=== PATIENT | male | born 1935 | race Caucasian/White ===

== ENCOUNTER → 2018-02-26 | Outpatient (CLI) | payer OTHER ==
[~2018-02-26] VITALS: Ht 193 cm; Wt 98.8 kg
[~2018-02-26] MED LIST: AMLODIPINE BESY10 MG PO; DEMADEX20 MG PO; DHEA50 MG PO; LOSARTAN POTAS100 MG PO; MOBIC15 MG PO; POTASSIUM CITR10 ME1 PO; XARELTO20 MG PO
--- NOTE | ~2018-02-26 | OD ---
[facility] [place] [address] DELIVERY NOTE Name: GREGOR HART [facility] [id number] Admission: 02/26/18 Attend Phys: Caleb Coburn MD Discharge: Date of : 39 Report #: [id number] THIS REPORT FOR: //name// CC: Christofer Coburn DATE OF SERVICE: 02/26/2018 The patient is a pleasant 82-year-old gentleman seen today with pain in his left hip. His history is a bit atypical for classic radiculopathy. His pain is almost always at night. He cannot sleep in the horizontal position. It does not matter whether he is sleeping on his side or his back or his stomach. The pain wakes him frequently through the night, and he is sleeping poorly. Pain is intense as high as a 7-9 until he changes position. The pain does radiate some from the hip, a bit into the upper thigh, but not far. He gets relief when he stands up. MEDICATIONS: Torsemide, losartan, amlodipine, Xarelto, potassium, DHEA and meloxicam 15 mg daily. He has been given the go ahead to take the meloxicam while on Xarelto. We discussed the risk of blood thinners and anti-inflammatory drugs. He will carefully monitor for any bleeding issues related to meloxicam from the GI tract including the concerns of dyspepsia or any darkening of his stools. He has discontinued his Xarelto as recommended by Dr. Faith in anticipation of an epidural injection today for presumptive lumbar radiculopathy. ALLERGIES: None. PAST MEDICAL AND SURGICAL HISTORY: Significant for hypertension and atrial fibrillation. He has had bilateral knee replacements and herniorrhaphy. All have been performed in the last 15-20 years with no complications. SOCIAL HISTORY: He denies use of tobacco, but does drink alcohol 4-5 times a week in a social setting. 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 He has been retired for several years, enjoys fly fishing and time with his family. He has a place in [place] near [place] and is looking forward to a holiday with his family. REVIEW OF SYSTEMS: Positive for atrial fibrillation and some mild peripheral neuropathy in the lower extremities, he describes it as more fullness than pain. PHYSICAL EXAMINATION: He is a pleasant, serious 82-year-old gentleman. He appears fit. His blood pressure is 100/76, heart rate 60. He is 6 feet 4 inches tall, 217 pounds with a BMI of 26.5. He moves easily from a sitting to standing position. His gait is strong and stable without any signs of antalgic [facility] [address] [place] [address] DELIVERY NOTE Name: GREGOR HART Room #: REG [place] Morel#: [id number] Admission: 02/26/18 Attend Phys: Caleb Coburn MD Discharge: Date of : 39 Report #: [id number] feature. He is not a fall risk. He has limited pain with forward flexion, extension and rotation of the spine. Straight leg raising is negative. Sensation is intact other than some slight decrease to light touch over the feet due to neuropathy. Strength is excellent throughout both lower extremities. Deep tendon reflexes are diminished throughout. X-ray of the lumbar spine was reviewed. The MRI does show left convexity curvature of the lower lumbar spine. There are degenerative changes involving all lumbar disk and facets from L2-L3 through L5-S1. There is multilevel neural foraminal narrowing and mild central spinal stenosis. IMPRESSION: Lumbar spondylosis with foraminal and central spinal narrowing. Nocturnal pain that radiates into the hips and leg with consideration for lumbar epidural mechanism. RECOMMENDATION: Trial of epidural steroid injection under fluoroscopic guidance. DESCRIPTION OF PROCEDURE: The patient was taken to fluoroscopic suite for treatment, placed prone. Skin was prepped with ChloraPrep. Skin anesthetized over the L4-L5 interspace and a 20-gauge Tuohy epidural needle advanced on the first attempt in the epidural space with loss of resistance technique. There was no blood or CSF aspirated. 1 mL of Omnipaque injected. Good spread of dye observed into the epidural space followed by 3 mL of 0.5% lidocaine mixed with 80 mg of triamcinolone. He tolerated the procedure well and was observed for 45 minutes and discharged. Followup visit planned in the pain clinic on an as needed basis. I would like to see him back in a month for the possible repeat of injection or to determine if there are additional pain generators. By: [id number] Caleb Coburn MD /nt
[2018-02-26 13:43] VITALS: BP 100/76
== END | disposition home or self-care (01) ==
LOC: PAIN 02:04
DX: M47.816 Spondylosis without myelopathy or radiculopathy, lumbar region (principal); M99.73 Connective tissue and disc stenosis of intervertebral foramina of lumbar region; M48.061 Spinal stenosis, lumbar region without neurogenic claudication; G89.29 Other chronic pain; I10 Essential (primary) hypertension; I48.91 Unspecified atrial fibrillation; G62.9 Polyneuropathy, unspecified; M19.90 Unspecified osteoarthritis, unspecified site; Z91.018 Allergy to other foods; Z79.899 Other long term (current) drug therapy; Z79.01 Long term (current) use of anticoagulants; Z98.890 Other specified postprocedural states; Z96.653 Presence of artificial knee joint, bilateral